=== PATIENT | male | born 1950 | race Caucasian/White ===

== ENCOUNTER 2022-05-10 16:40 | Outpatient (CLI) | payer OTHER | END 2022-05-10 16:41 | disposition home or self-care (01) | LOC: BURRAD 16:40 | PROVIDERS: ATTEND Nurse Practitioner Family | DX: M54.50 Low back pain, unspecified (principal); M47.816 Spondylosis without myelopathy or radiculopathy, lumbar region | CPT/HCPCS: 72120 ==